=== PATIENT | male | born 1965 | race Caucasian/White ===

== ENCOUNTER 2022-02-21 08:47 | Emergency (ER) | payer OTHER, SELFPAY ==
[2022-02-21 08:53] VITALS: BP 181/126; PULSE 70; RESP 16; TEMP 36.2; O2SAT 98; BMI 26.6
--- NOTE | 2022-02-21 09:14 | CRLHL7_ITS ---
For Patients: As a result of the Century Cures Act, medical imaging exams and procedure reports are released immediately into your electronic medical record. You may view this report before your referring provider. If you have questions, please contact your health care provider. INDICATION: Left arm numbness COMPARISON: None TECHNIQUE: CT examination of the head was performed as axial sections without intravenous contrast. Images were obtained from the vertex of the skull through the skull base. Please note that all CT scans at this facility use dose modulation, iterative reconstruction, and/or weight-based dosing when appropriate to reduce radiation dose to as low as reasonably achievable. FINDINGS: The brain shows no sign of mass lesion, mass effect, hemorrhage, or edema. The ventricles and sulci are normal in appearance for the patient`s age. The visualized portions of the orbits are normal in appearance. The osseous structures are normal in their appearance with no sign of abnormality in the skull base or calvarium. IMPRESSION: Age-appropriate appearance of the brain. No visible cause for arm numbness. Please note that all CT scans at this facility use dose modulation, iterative reconstruction, and/or weight-based dosing when appropriate to reduce radiation dose to as low as reasonably achievable. Dictated by Umair Lozada MD @ 02/21/2022 11:10:08 AM (Electronically Signed)
--- NOTE | 2022-02-21 09:14 | CRLHL7_ITS ---
For Patients: As a result of the Century Cures Act, medical imaging exams and procedure reports are released immediately into your electronic medical record. You may view this report before your referring provider. If you have questions, please contact your health care provider. INDICATION: Left arm pain COMPARISON: None TECHNIQUE: PA and lateral views of the chest were acquired FINDINGS: TUBES AND LINES: None. HEART AND MEDIASTINUM: Heart size normal..Tortuous thoracic aorta. LUNGS AND PLEURAL SPACES: The lungs appear normal.The pleural spaces are unremarkable. OSSEOUS STRUCTURES: Age-appropriate appearance. No acute focal finding. IMPRESSION: No evidence of active pulmonary disease. Dictated by Umair Lozada MD @ 02/21/2022 10:59:46 AM (Electronically Signed)
--- NOTE | 2022-02-21 09:15 | CRLHL7_ITS ---
For Patients: As a result of the Cures Act, medical imaging exams and procedure reports are released immediately into your electronic medical record. You may view this report before your referring provider. If you have questions, please contact your health care provider. Indication: Left arm numbness Technique: Three images of the cervical spine were acquired as AP, lateral and odontoid views Comparison: None Findings: No malalignment. Moderate degenerative changes mainly in the mid and lower cervical spine. There is no visible acute fracture, dislocation or destructive process. Impression: Moderate degenerative changes. No acute fracture, dislocation or destructive process. Dictated by Umair Lozada MD @ 02/21/2022 10:57:26 AM (Electronically Signed)
[2022-02-21 10:05] LABS: Basophils Absolute Auto 0.02 K/uL (0.00-0.30); Basophils Percent Auto 0.2 % (0.0-3.0); Eosinophils Absolute Auto 0.04 K/uL (0.00-0.50); Eosinophils Percent Auto 0.5 % (0.0-7.0); Hematocrit 48.2 % (37.0-53.0); Hemoglobin* 16.4 gm/dL (13.5-17.5); Immature Granulocytes Abs Auto 0.01 K/uL (0.00-0.30); Immature Granulocytes Pct Auto 0.1 %; Lymphocytes Percent Auto 15.6 % (20-44); Mean Corpuscular HGB Conc 34 gm/dL (32-36); Mean Corpuscular Hemoglobin 30 pg (26-34); Mean Corpuscular Volume 89 fL (80-100); Monocytes Percent Auto 9.1 % (0.0-11.0); Neutrophils Percent Auto 74.5 % (42.0-72.0); Platelet Count* 333 K/uL (140-440); RDW Coefficient of Variation % 11.8 % (11.5-15.5); Red Blood Count 5.44 m/uL (4.30-5.90); White Blood Count* 8.09 K/uL (4.50-11.00)
[2022-02-21 10:08] LABS: Slide Review Reflex No
[2022-02-21 10:23] LABS: INR 0.93 (0.91-1.10); Partial Thromboplastin Time* 30 Seconds (23-33)
[2022-02-21 10:26] LABS: D Dimer Quantitative* 0.49 ug/ml (0.00-0.50)
[2022-02-21 10:34] LABS: C Reactive Protein* < 0.5 mg/dL (0.5-1.0); NT Pro B Type NatriureticPept* < 20 pg/mL
[2022-02-21 12:04] VITALS: BP 174/108; BP 175/110; PULSE 65; RESP 16; TEMP 36.8; O2SAT 97
[2022-02-21 12:05] VITALS: BP 175/110; PULSE 69; O2SAT 96
[2022-02-21 12:07] VITALS: BP 174/108
--- NOTE | 2022-02-21 16:33 | ED.NEUROSD ---
HPI - Neuro Symptoms/Deficit General Date Seen: 02/21/22 Chief Complaint: Neuro Symptoms/Altered Deficit Stated Complaint: Tingling left arm/rubbery legs Time Seen by Provider: 02/21/22 08:58 Source: patient Mode of arrival: ambulatory Limitations: no limitations History of Present Illness HPI Narrative: Patient is a connor 56-year-old gentleman who presents here for evaluation of altered sensation was left outer upper arm. He has had this for the last 24 hours, he says it is not totaly numb, but he can feel to soft touch through this or sharpness. There is no weakness associated with this, he has a funny feeling in his legs that there just a little heavier than normal. He admits to me that this may be anxiety denies a headache, diplopia double vision speech or problems no previous history of stroke, hypertension, lifetime nonsmoker, no use of drugs, and this it did not come on with exercise or other abnormality Does drink approximately 7 oz of alcohol per week, but no more. Onset (ago): day(s) On Anticoagulants: No Related Data Home Medications Medication Instructions Recorded Confirmed clobetasol 0.05 % scalp solution topical 02/21/22 Allergies Allergy/AdvReac Type Severity Reaction Status Date / Time penicillin V Allergy Intermediate Rash Verified 02/21/22 08:58 Sulfa (Sulfonamide Allergy Intermediate Rash Verified 02/21/22 08:58 Antibiotics) Review of Systems Status of ROS: Reports: 10 or more systems reviewed and unremarkable except as noted in History and below PFSH PFSH Social History Smoking Status: Never smoker Do you use any of these nicotine containing products: None Second hand tobacco smoke exposure: No How often do you have a drink containing alcohol: 4 or more times a week How many standard drinks containing alcohol do you have on a typical day: 7 to 9 How often do you have six or more drinks on one occasion: Less than monthly AUDIT-C Alcohol total score: 8 Non-prescribed substance use: denies use service: No Exam Narrative: Exam Narrative: On examination in room 5 he is in no apparent distress he is pleasant alert, pupils equal round reactive to light fundi are normal extraocular muscles are normal cranial nerves 3-12 are normal, oropharynx normal, it is symmetrical no bruising or trauma is noted, mouth opening normal, carotid upstrokes equal bilaterally, JVP flat, neck is supple full range of motion in flexion extension lateral flexion is noted, with no worsening of the left sided tear area abnormality, chest is clear heart sounds are normal common S1-S2 are normal there is no clicks murmurs or gallops noted, abdomen is soft and slightly obese there is no guarding no organomegaly bowel sounds are normal, no tenderness, moves all extremities independently well both upper and lower extremities, symmetrical bilaterally, with normal proximal and distal power, sensations normal, even over the left outer upper arm. Const: Vital Signs, click to edit/add: Vital Signs - 24 hr 02/21/22 08:53 02/21/22 12:04 02/21/22 12:04 Temperature 97.2 F L 98.3 F Pulse Rate 65 Pulse Rate [Left P ulse Oximeter] 70 Respiratory Rate 16 16 Blood Pressure 175/110 H 174/108 H Blood Pressure [Ri ght Upper Arm] 181/126 H Pulse Oximetry 98 97 Oxygen Delivery Me thod Room Air 02/21/22 12:05 02/21/22 12:07 Temperature Pulse Rate 69 Pulse Rate [Left P ulse Oximeter] Respiratory Rate Blood Pressure 175/110 H 174/108 H Blood Pressure [Ri ght Upper Arm] Pulse Oximetry 96 Oxygen Delivery Me thod Documenting provider has reviewed patient's vital signs: yes Course Course Hospital Course: Patient is seen and assessed his laboratory work is all reassuring, head CT was within normal limits, I did talk to him about pursuing an MRI, but he did not want to do this at the present time in fact he told me that his numbness on his arm went away. I think it would be reasonable let him go, as he is neurologically intact walking and talking normally, he does need to follow-up in regards to his blood pressure which is elevated here. I have a schedule him for appointment for follow-up with an excellent family physician, for discussing this and ongoing care. Vital Signs Vital signs: Initial Vital Signs Temperature 97.2 F L 02/21/22 08:53 Temperature Source Temporal Artery Scan 02/21/22 08:53 Pulse Rate 70 02/21/22 08:53 Pulse Rhythm 02/21/22 08:53 Pulse Strength 3+ Normal 02/21/22 08:53 Respiratory Rate 16 02/21/22 08:53 Blood Pressure 181/126 H 02/21/22 08:53 Blood Pressure Mean 144 02/21/22 08:53 Blood Pressure Position Sitting 02/21/22 08:53 Pulse Oximetry 98 02/21/22 08:53 Oxygen Delivery Method 02/21/22 08:53 Vital Signs Temperature 97.2 F L 02/21/22 08:53 Pulse Rate 70 02/21/22 08:53 Respiratory Rate 16 02/21/22 08:53 Blood Pressure 181/126 H 02/21/22 08:53 Pulse Oximetry 98 02/21/22 08:53 Oxygen Delivery Method 02/21/22 08:53 Temperature 98.3 F 02/21/22 12:04 Pulse Rate 69 02/21/22 12:05 Respiratory Rate 16 02/21/22 12:04 Blood Pressure 174/108 H 02/21/22 12:07 Pulse Oximetry 96 02/21/22 12:05 Oxygen Delivery Method 02/21/22 08:53 MDM - Neuro Symptoms/Deficit MDM Narrative Medical decision making narrative: Life-threatening differential diagnosis considered include stroke, coronary artery disease, pneumonia, and heart failure. Other differential diagnosis include but are not limited to electrolyte imbalances, anemia, medication reactions, and urinary tract infection Medical Records Attestation: I reviewed the patient's medical records. Lab Data Attestation: I reviewed the patient's lab results. Labs: Lab Results 02/21/22 02/21/22 02/21/22 Range/Units 09:14 10:00 10:00 WBC 8.09 (4.50-11.00) K/uL RBC 5.44 (4.30-5.90) m/uL Hgb 16.4 (13.5-17.5) gm/dL Hct 48.2 (37.0-53.0) % MCV 89 (80-100) fL MCH 30 (26-34) pg MCHC 34 (32-36) gm/dL RDW Coeff of Otilia 11.8 (11.5-15.5) % Plt Count 333 (140-440) K/uL Neut % (Auto) 74.5 H (42.0-72.0) % Lymph % (Auto) 15.6 L (20-44) % Twiggs % (Auto) 9.1 (0.0-11.0) % Eos % (Auto) 0.5 (0.0-7.0) % Baso % (Auto) 0.2 (0.0-3.0) % Neut # (Auto) 6.00 (1.7-7.0) K/uL Lymph # (Auto) 1.30 (0.90-2.90) K/uL Twiggs # (Auto) 0.70 (0.00-0.90) K/UL Eos # (Auto) 0.04 (0.00-0.50) K/uL Baso # (Auto) 0.02 (0.00-0.30) K/uL INR 0.93 (0.91-1.10) APTT 30 (23-33) Seconds D-Dimer Quant (PE/DVT) 0.49 (0.00-0.50) ug/ml C-Reactive Protein (0.5-1.0) mg/dL NT-Pro-B Natriuret Pep pg/mL POC Troponin I 0.00 L (0.01-0.04) ng/ml 02/21/22 02/21/22 Range/Units 10:00 10:00 WBC (4.50-11.00) K/uL RBC (4.30-5.90) m/uL Hgb (13.5-17.5) gm/dL Hct (37.0-53.0) % MCV (80-100) fL MCH (26-34) pg MCHC (32-36) gm/dL RDW Coeff of Otilia (11.5-15.5) % Plt Count (140-440) K/uL Neut % (Auto) (42.0-72.0) % Lymph % (Auto) (20-44) % Twiggs % (Auto) (0.0-11.0) % Eos % (Auto) (0.0-7.0) % Baso % (Auto) (0.0-3.0) % Neut # (Auto) (1.7-7.0) K/uL Lymph # (Auto) (0.90-2.90) K/uL Twiggs # (Auto) (0.00-0.90) K/UL Eos # (Auto) (0.00-0.50) K/uL Baso # (Auto) (0.00-0.30) K/uL INR (0.91-1.10) APTT (23-33) Seconds D-Dimer Quant (PE/DVT) Cancelled (0.00-0.50) ug/ml C-Reactive Protein < 0.5 L (0.5-1.0) mg/dL NT-Pro-B Natriuret Pep < 20 pg/mL POC Troponin I (0.01-0.04) ng/ml ECG Data Attestation: I personally reviewed and interpreted this ECG as follows: Discharge Plan Discharge Clinical Impression: Elevated blood pressure reading, Alterations of sensations Patient Disposition: Home, Self-Care Condition: Stable Instructions: Paresthesia (ED) Additional Instructions: Home rest please follow-up in 2 days with the primary care physician is listed, for recheck of your blood pressure, and recheck of your symptoms. Increasing symptoms such as numbness tingling weakness headache balance or speech issues she should come back to the emergency room. Follow up appointment is scheduled at the [facility] on 02/22 with an 8:15am arrival time. If you have any questions or need to reschedule, please call [phone]. [facility] [address] [place] [address] Prescriptions: No Action clobetasol 0.05 % solution TOPICAL Label Comments: 1 APPLICATION TWICE A DAY TOPICALLY TO THE ITCHY AREAS ON THE SCALP FOR 2WEEKS AT A TIME. Follow Up/Referrals: Provider,Not a Local [Primary Care Provider] - Stand Alone Forms: MyHealth Info Instructions
== END 2022-02-21 12:27 | disposition home or self-care (01) ==
PROVIDERS: Emergency Provider Family Medicine
DX: R20.9 Unspecified disturbances of skin sensation (principal); R03.0 Elevated blood-pressure reading, without diagnosis of hypertension
CPT/HCPCS: 36415; 70450; 71046; 72040; 83880; 84484; 85025; 85379; 85610; 85730; 86140; 93005; 99284

== ENCOUNTER 2023-08-22 07:30 | Outpatient (CLI) | payer OTHER, SELFPAY | END 2023-08-22 07:31 | disposition home or self-care (01) | LOC: NFLDREF 08-29 15:43 | PROVIDERS: PCP Family Medicine; Referring Provider Family Medicine; Visit Provider Family Medicine | DX: Z13.220 Encounter for screening for lipoid disorders (principal); I10 Essential (primary) hypertension | CPT/HCPCS: 80053; 80061 ==

== ENCOUNTER 2023-09-24 07:08 | Outpatient (CLI) | payer OTHER, SELFPAY ==
--- NOTE | 2023-09-24 08:11 | W.ANESCHARGE ---
Anesthesia Charges Start Date/Time Anesthesia Start Date: 09/24/23 Anesthesia Start Time: 07:40 Stop Date/Time Anesthesia Stop Date: 09/24/23 Anesthesia Stop Time: 08:08
--- NOTE | 2023-09-24 09:00 | W.ANESCHARGE ---
Anesthesia Charges Start Date/Time Anesthesia Start Date: 09/24/23 Anesthesia Start Time: 07:40 Stop Date/Time Anesthesia Stop Date: 09/24/23 Anesthesia Stop Time: 08:08
== END 2023-09-24 07:09 | disposition home or self-care (01) ==
LOC: OP CLINIC 07:08
PROVIDERS: PCP Family Medicine; Visit Provider Internal Medicine
DX: Z12.11 Encounter for screening for malignant neoplasm of colon (principal); K63.5 Polyp of colon
CPT/HCPCS: 00811; 45380; 88305; J2704

== ENCOUNTER 2024-06-06 09:00 | Outpatient (CLI) | payer OTHER, SELFPAY ==
[2024-06-06 12:17] LABS: Basophils Absolute Auto 0.05 K/uL (0.00-0.30); Basophils Percent Auto 0.7 % (0.0-3.0); Eosinophils Absolute Auto 0.16 K/uL (0.00-0.50); Eosinophils Percent Auto 2.3 % (0.0-7.0); Hemoglobin* 15.8 gm/dL (13.5-17.5); Immature Granulocytes Abs Auto 0.03 K/uL (0.00-0.30); Immature Granulocytes Pct Auto 0.4 %; Lymphocytes Absolute Auto 1.48 K/uL (0.90-2.90); Mean Corpuscular HGB Conc 32 gm/dL (32-36); Mean Corpuscular Hemoglobin 30 pg (26-34); Mean Corpuscular Volume 91 fL (80-100); Monocytes Percent Auto 13.2 % (0.0-11.0); Neutrophils Percent Auto 62.4 % (42.0-72.0); Platelet Count* 386 K/uL (140-440); RDW Coefficient of Variation % 12.3 % (11.5-15.5); Red Blood Count 5.36 m/uL (4.30-5.90); White Blood Count* 7.05 K/uL (4.50-11.00)
[2024-06-06 12:19] LABS: Slide Review Reflex No
[2024-06-06 12:31] LABS: Albumin* 4.5 g/dL (3.3-5.0); Chloride* 100 mmol/L (96-114); Potassium* 4.6 mmol/L (3.6-5.1); Sodium* 138 mmol/L (135-149)
[2024-06-06 12:34] LABS: Alanine Aminotransferase* 36 U/L (4-50); Alkaline Phosphatase* 73 U/L (40-150); Anion Gap 5 mEq/L (7-15); Aspartate Amino Transferase* 36 U/L (12-35); Bilirubin Total* 0.6 mg/dL (0.1-1.5); Blood Urea Nitrogen* 13 mg/dL (7-30); Calcium* 9.8 mg/dL (8.4-10.6); Carbon Dioxide* 33 mmol/L (20-32); Creatinine* 0.8 mg/dL (0.5-1.5); Estimated Glomerular Filt Rate 103 ml/min; Glucose* 97 mg/dL (60-115); Total Protein* 7.2 g/dL (6.0-8.3)
== END 2024-06-06 09:01 | disposition home or self-care (01) ==
LOC: NPINS 06-09 12:39
PROVIDERS: PCP Family Medicine; Visit Provider Student in an Organized Health Care Education/Training Program
DX: L66.11 Classic lichen planopilaris (principal); L98.8 Other specified disorders of the skin and subcutaneous tissue; L82.0 Inflamed seborrheic keratosis; L53.8 Other specified erythematous conditions; Z79.899 Other long term (current) drug therapy
CPT/HCPCS: 80053; 85025

== ENCOUNTER 2024-07-31 07:32 | Outpatient (CLI) | payer OTHER, SELFPAY | END 2024-07-31 07:33 | disposition home or self-care (01) | LOC: NFLDREF 08-03 11:22 | PROVIDERS: PCP Family Medicine; Referring Provider Family Medicine; Visit Provider Family Medicine | DX: I10 Essential (primary) hypertension (principal) | CPT/HCPCS: 80053; 80061 ==